=== PATIENT | male | born 1945 | race Hispanic/Latino ===

== ENCOUNTER 2017-12-23 21:28 | Inpatient (IN) | payer MEDICARE ==
--- NOTE | 2017-12-23 22:16 | RAD ---
SINGLE VIEW OF THE CHEST: 12/23/17 COMPARISON: None. HISTORY: Fever. FINDINGS: Single view of the chest shows a normal sized cardiomediastinal silhouette. There is no evidence of c onsolidation, mass, or pleural effusion. The bones are unremarkable. IMPRESSION: No evidence of acute cardiopulmonary disease. POS: C
[2017-12-23 22:17] LABS: Band 28 % (5-11); Dohle Bodies SLIGHT; Hemoglobin 14.3 g/dL (14.0-18.0); Lymphocytes 17 % (21-51); MDiff Complete? YES; Mean Corpuscular HGB CONC 35.9 g/dL (32.0-36.0); Mean Corpuscular Volume 83.5 fL (78.0-98.0); Mean Platelet Volume 8.8 fL (7.4-10.4); Monocytes 2 % (0-10); Neutrophil 53 % (42-75); PLT Morphology Comment Appears Adequate; Platelet Count 192 thou/uL (130-400); RBC Distribution Width 11.5 % (11.5-14.5); Red Blood Cell (RBC) Count 4.78 mill/uL (4.70-6.10); Vacuoles SLIGHT; White Blood Cell (WBC) Count 9.2 thou/uL (4.8-10.8)
[2017-12-23] MEDS ORDERED: Piperacillin/Tazobactam 4.5 GM VIAL ONE (22:18)
[2017-12-23] MEDS ORDERED: Sodium Chloride 0.9% 100 ML ONE (22:18)
[2017-12-23 22:20] LABS: ALT (SGPT) 30 U/L (8-55); AST (SGOT) 20 U/L (5-34); Albumin 4.4 g/dL (3.4-4.8); Alkaline Phosphatase 62 U/L (40-150); Anion Gap 19 mmol/L (10-20); BUN (Urea Nitrogen) 26 mg/dL (8.4-25.7); Bilirubin, Total 1.5 mg/dL (0.2-1.2); Calc. Creatinine Clearance 0 mL/min (70-130); Calcium 9.4 mg/dL (7.8-10.44); Carbon Dioxide 18 mmol/L (23-31); Chloride 98 mmol/L (98-107); Estimated GFR-MDRD 47; Globulin 3.7 g/dL (2.4-3.5); Glucose 301 mg/dL (83-110); Lipase 17 U/L (8-78); Potassium 3.7 mmol/L (3.5-5.1); Protein, Total 8.1 g/dL (5.8-8.1); Sodium 131 mmol/L (136-145)
[2017-12-23 22:22] LABS: CKMB 0.6 ng/mL (0-6.6); Troponin I Less than 0.010 ng/mL (< 0.028)
[2017-12-23 22:27] LABS: Bilirubin Negative (Negative); Blood, Urine Trace (Negative); Clarity Slightly Cloudy (Clear); Glucose, Urine (Dipstick) 250 mg/dL (Negative); Leukocyte Negative (Negative); Nitrite Negative (Negative); Protein, Urine (Dipstick) > or equal to 300 mg/dL (Neg-Trace); Urobilinogen 0.2 mg/dL (0.2-1.0); pH, Urine 5.5 (5.0-9.0)
[2017-12-23 22:35] LABS: Bacteria/HPF 1+ HPF (None Seen); Hyaline Casts/LPF NONE SEEN LPF (0-3 Hyaline); RBC/HPF 0-3 HPF (0-3); Squamous Epithelial 0-3 HPF (0-3); WBC/HPF 0-3 HPF (0-3)
--- NOTE | 2017-12-23 22:45 | CT ---
CT HEAD WITHOUT IV CONTRAST; 12/23/17 HISTORY: Altered mental status. COMPARISON: 10/11/10. FINDINGS: There is no evidence of a hemorrhage, acute infarction, mass effect, or midline shift. There is mild cerebral volume loss similar to prior exam. Ventricular system is normal in size, shape and position. There has been no interval change from the prior exam. IMPRESSION: No acute intracranial abnormalities demonstrated. POS: [facility]
[2017-12-23] MEDS ORDERED: Ibuprofen 800 MG TAB ONE (22:57)
[2017-12-24] MEDS ORDERED: Sodium Chloride 0.9% 1,000 ML IV SCH (00:15)
[2017-12-24 00:33] VITALS: BMI 33.9
[2017-12-24 02:13] LABS: Lactic Acid 2.6 mmol/L (0.5-2.2)
[2017-12-24] MEDS: Acetaminophen 325 MG TAB PO PRN ×2 (05:20→21:19)
[2017-12-24] MEDS: Piperacillin/Tazobactam 3.375 GM in Sodium Chloride 0.9% 100 ML IVPB SCH ×4 (05:21→22:56)
[2017-12-24] MEDS ORDERED: HumaLOG 300 UNITS/3 ML VIAL SC PRN (07:12)
[2017-12-24] MEDS ORDERED: Zolpidem Tartrate 5 MG TAB PO PRN (07:12)
[2017-12-24] MEDS ORDERED: HYDROcodone/Acetaminophen 5/325 mg Tablet PO PRN (07:12)
[2017-12-24] MEDS ORDERED: Chloraseptic Spray 180 ml Bottle PO PRN (07:12)
[2017-12-24] MEDS ORDERED: Ondansetron ODT 4 MG TAB PO PRN (07:12)
[2017-12-24] MEDS ORDERED: Milk Of Magnesia 30 ML UDCUP PO PRN (07:12)
[2017-12-24] MEDS ORDERED: Loratadine 10 MG TAB PO PRN (07:12)
[2017-12-24] MEDS ORDERED: Senokot 8.6 MG TAB PO PRN (07:12)
[2017-12-24] MEDS ORDERED: Artificial Tears 18 DROP/0.9 ML EA EYE PRN (07:12)
[2017-12-24] MEDS ORDERED: Sodium Chloride 0.65% Nasal 44 ML BOT EA NARE PRN (07:12)
[2017-12-24] MEDS ORDERED: Dextrose 5% in Water 1,000 ML IV PRN (07:12)
[2017-12-24] MEDS ORDERED: Diabetic Tussin 200 MG/10 ML UDCUP PO PRN (07:12)
[2017-12-24] MEDS ORDERED: Dextrose 50% Abboject 50 ML SYRINGE SLOW IVP PRN (07:12)
[2017-12-24] MEDS ORDERED: Labetalol HCl 100 MG/20 ML VIAL SLOW IVP PRN (07:12)
[2017-12-24] MEDS ORDERED: Mag-Al 1200 mg/1200 mg/30 ML UDCUP PO PRN (07:12)
[2017-12-24] MEDS ORDERED: Ondansetron HCl/PF 4 MG/2 ML Vial IVP PRN (07:12)
[2017-12-24] MEDS ORDERED: Eucerin (Mineral Oil/Petrolatum,White) 30 gm Jar TOP PRN (07:12)
[2017-12-24] MEDS ORDERED: Prevnar 13-Val Conj/PF 0.5 ML SYRINGE IM ONE (09:00)
[2017-12-24] MEDS ORDERED: Famotidine 20 MG TAB PO SCH (09:00)
[2017-12-24] MEDS: Amlodipine 10 MG TAB PO SCH (09:09)
[2017-12-24] MEDS: glipiZIDE 10 MG TAB PO SCH ×2 (09:09→21:20)
[2017-12-24] MEDS: Enoxaparin Sodium 40 MG/0.4 ML SYRINGE SC SCH (09:10)
[2017-12-24] MEDS: Saccharomyces boulardii 250 MG CAP PO SCH (09:14)
[2017-12-24] MEDS: Sodium Chloride 0.9% 1,000 ML IV SCH ×2 (10:55→21:20)
--- NOTE | 2017-12-24 11:25 | HP ---
DATE OF ADMISSION 12/23/2017 REASON FOR ADMISSION: Sepsis. HISTORY OF PRESENT ILLNESS: A 72-year-old male who is [place]arag[place] speaking only, but family mem roman present who provided most of the history and help to interpret to get history from him. The shine ent has nausea, vomiting, diarrhea for the last 3 days. His diarrhea is liquidy in nature. He denie s any pus or blood. He denies any unusual food ingestion. He denies any sick exposure. He denies a [place] recent travel. There is no other family member sick besides him. He started having fever up to t emperature maximum 103 at home with chills. He was having increasing hesitancy for urination as well as incontinence of urination. Similarly whenever he was going for defecation and he was not able to control and he was having little amount of crampy lower abdominal discomfort. He denies any associa kyree cough, pleuritic chest pain. He denies any hematemesis, melena. He denies any sore throat or fl u-like illness. The patient's appetite was also reduced and per family member, the patient was confused when he had f ever at home, but subsequently he was acting normal. He did not have any focal neurological deficit. In the emergency room, the patient was tachycardic, febrile, tachypneic. His routine blood tests milagro wed bandemia. He was treated with vancomycin and Zosyn, ibuprofen and IV fluid at [facility] and subsequently he was transferred to our hospital for further evaluation and priscilla atment. The patient also reports that his abdomen is bloated and he feels epigastric and right upper quadrant pain. He denies any yellow discoloration of the sclerae or urine. He denies any similar problem in the past. REVIEW OF SYSTEMS: The following complete review of systems was negative, unless otherwise mentioned in the HPI or below: Constitutional: Weight loss or gain, ability to conduct usual activities. Skin: Rash, itching. Eyes: Double vision, pain. ENT/Mouth: Nose bleeding, neck stiffness, pain, tenderness. Cardiovascular: Palpitations, dyspnea on exertion, orthopnea. Respiratory: Shortness of breath, wheezing, cough, hemoptysis, fever or night sweats. Gastrointestinal: Poor appetite, abdominal pain, heartburn, nausea, vomiting, constipation, or diarrhea. Genitourinary: Urgency, frequency, dysuria, nocturia. Musculoskeletal: Pain, swelling. Neurologic/Psychiatric: Anxiety, depression. Allergy/Immunologic: Skin rash, bleeding tendency. Please see my HPI for pertinent positive and negative. All other review of systems reviewed and nega tive except as mentioned in the HPI. PAST MEDICAL HISTORY: Diabetes type 2, hypertension. PAST SURGICAL HISTORY: Reviewed and negative. PAST PSYCHIATRIC HISTORY: Reviewed and negative. SOCIAL HISTORY: The patient is living at home with family. No history of tobacco, alcohol or illici t drug abuse. FAMILY HISTORY: Diabetes runs among several family members, but no strong family history of coronary artery disease, stroke or cancer. ALLERGIES: No known drug allergy. CURRENT HOME MEDICATIONS: Janumet one tablet twice daily, glipizide 10 mg twice daily, cloni dine 0.1 mg 3 times daily, Actos 30 mg p.o. daily, amlodipine 10 mg daily, metoprolol tartrate 100 mg twice daily, Prinzide 20/25 one tablet p.o. daily, hydralazine 50 mg twice daily. EMERGENCY ROOM COURSE: The patient is given ibuprofen, vancomycin, Zosyn, and IV fluid. PHYSICAL EXAMINATION: VITAL SIGNS: On arrival, blood pressure 173/47, pulse 107, respiratory rate 22, temperature 103.1, s aturation 94% on room air, weight 83.9 kilograms. GENERAL: The patient is currently alert, awake, no obvious acute distress. HEENT: Head; normocephalic, atraumatic. Eyes: Pupils round, reactive to light. Extraocular muscle intact. ENT: Oropharynx within normal limits. Moist mucous membrane, no oral lesion, no pharyngea l erythema, no exudate. NECK: Supple, no JVD, no thyromegaly, no carotid bruit, no jugular venous distention. LUNGS: Clear to auscultation, no rhonchi, no wheeze, no accessory muscles of respiration in use. CARDIAC: S1, S2 regular, tachycardia, no murmur elicited, no gallop, no rub. ABDOMEN: The patient does have some vague right upper quadrant discomfort, but no obvious Yates's s ign, no epigastric discomfort noted. The abdomen appears bloated. No peritoneal sign, no guarding, no rigidity, no rebound. Even though suprapubic tenderness. BACK: Unremarkable, no CVA tenderness. EXTREMITIES: Upper extremity passive movement of all joints are normal. Lower extremities: No jacki a. Good peripheral pulsation, no calf tenderness. SKIN: No skin rash. HEMATOLOGICAL: No lymphadenopathy. PSYCHIATRIC: Normal affect. NEUROLOGIC: The patient is alert, oriented x3. Cranial nerves II-XII intact. Motor and sensation w ithin normal limits. No focal neurological deficit noted. SKIN: No skin rashes. PSYCHIATRIC: Normal affect. SIGNIFICANT LABORATORY AND X-RAY DATA: EKG showing sinus tachycardia without any acute ischemic dalton ges. Chest x-ray based on my review, no acute cardiopulmonary process. CT brain based on my review, no acute intracranial process. CBC: WBC is 9.2, hemoglobin 14.3, platelet 192 with bandemia 1828. BMP: Sodium 131, potassium 3.7, chloride 98, carbon dioxide 18, BUN 26, creatinine 1.47, glucose 301, calcium 9.5. Bilirubin 1.5, A ST 20, ALT 30, alkaline phosphatase 62, albumin 4.4. TSH 1.44. Cardiac enzymes negative. Lactic ac id 2.3. Urinalysis: Glucosuria, proteinuria, ketonuria, 1+ bacteria. ASSESSMENT AND PLAN: 1. Acute encephalopathy, resolved, likely due to acute febrile illness and associated sepsis. 2. Acute kidney failure, likely due to prerenal etiology baseline renal function not known. Another differential is chronic kidney disease from diabetic nephropathy. 3. Lactic acidosis likely due to sepsis. 4. Sepsis with acute organ dysfunction. Patient has a sepsis criteria. He has acute kidney failure and encephalopathy at home without any focal neurological deficit with lactic acidosis. Source of i nfection is unclear, but I am suspecting gastroenteritis versus colitis versus cholecystitis and that needs to be excluded. The patient is already on broad spectrum antibiotic therapy with vancomycin a nd Zosyn. We need to follow up on culture result. 5. Uncontrolled diabetes type 2. 6. Hyponatremia likely due to dehydration as well as uncontrolled blood sugar. 7. Hypertension. 8. Obesity with BMI 33. PLAN: 1. Full admission to telemetry floor for close monitoring on telemetry floor, given sepsis criteria. Patient will be given IV fluid with NS at 125 mL per hour. We will continue broad spectrum antibio tic therapy with vancomycin and Zosyn and will follow up on culture result. Probiotics, Florastor 25 0 mg p.o. daily. We will send stool for infection workup including ova and parasite, Campylobacter a ntigen, and Clostridium difficile. We will obtain CT of the abdomen and pelvis with contrast for fur ther evaluation. We will also resume patient's home medication including amlodipine, glipizide 10 mg twice daily. We will repeat lactic acid level tomorrow. We will hold on metformin and Januvia ther apy today. We will continue with insulin as per aggressive sliding scale. 2. Deep venous thrombosis prophylaxis, Lovenox 40 mg subcu daily. 3. Gastrointestinal prophylaxis, Pepcid 20 mg p.o. b.i.d. 4. CODE STATUS: The patient is FULL CODE. The patient's is surrogate decision maker. Disposition plan based on clinical course. We are expecting patient's stay in hospital more than 2 m idnights. Plan of care discussed with the family member at bedside.
[2017-12-24] MEDS ORDERED: Iopamidol 370 76% 100 ML VIAL ONE (13:09)
--- NOTE | 2017-12-24 14:21 | CT ---
CT OF THE ABDOMEN AND PELVIS WITH IV AND ENTERIC CONTRAST. INDICATION: Abdominal distention with gastritis and diarrhea. FINDINGS: There are bilateral renal cysts. The largest is seen within the inferior pole of the left kidney alyce suring 4.1 cm. There is an indeterminate 1.2 cm nodule involving the left adrenal body. Spleen and pancreas appear within normal limits. There are moderate calcifications involving the abdominopelvic vasculature. No drainable fluid collection is evident. The bladder, rectum, and perirectal soft tissues are unrem arkable. There is scattered diverticula involving the colon. There is wall thickening involving the cecum, ascending colon, and hepatic flexure. There is fluid present within the colon. The appendix is upper limits of normal in size measuring up to 8 mm; however, no definite periappendi ceal fat stranding is evident. No acute osseous abnormality is evident. IMPRESSION: 1. Findings of colitis involving the right hemicolon and right hepatic flexure with some fluid seen within the colon. Findings may be related to a colitis of infectious, inflammatory, or ischemic etio logy. 2. Appendix is upper limits of normal in size; however, there is intraluminal gas present. Some of the mild distention of the appendix may be related to the inflammation seen at the level of the cecum . 3. Fatty liver. 4. Bilateral renal cysts. 5. Left adrenal nodule measuring up to 1.2 cm, incompletely characterized on the current examination . The nodule on restropective review of the examination of the CT chest, abdomen, and pelvis on 2010 is likely stable. POS: [facility]
[2017-12-24] MEDS ORDERED: Vancomycin HCl 1.25 GM in Sodium Chloride 0.9% 250 ML 250 ML IVPB SCH (18:00)
[2017-12-24] MEDS: Simvastatin 5 MG TAB PO SCH (21:20)
[2017-12-24] MEDS: Loperamide HCl 2 MG CAP PO PRN (21:25)
--- NOTE | 2017-12-25 00:18 | CON ---
DATE OF CONSULTATION: 12/24/2017 REQUESTING PHYSICIAN: Dr. Najera. ATTENDING PHYSICIAN: Dr. Dale. HISTORY OF PRESENT ILLNESS: Mr. Chou is a 72-year-old male, who began experiencing diarrhea and abdominal pain, approximately 5 days ago. He reports that the pain intensified over the past 3 days. He also had crampy generalized abdominal pain. He also reports experiencing dizziness as well as fever and chills. He remained at home over the past 5 days. He had decrease in appetite and began having confusion with his fever. His daughter reports that she brought him to the emergency department for evaluation as his symptoms were not improving. CT scan of abdomen and pelvis obtained in the emergency department demonstrated colitis involving the right hemicolon and right hepatic flexure and dilated appendix. He was admitted to the hospital by [facility] and started on IV antibiotics. Trauma services has been consulted for evaluation for the need for urgent surgical intervention. PAST MEDICAL HISTORY: 1. Diabetes. 2. Hypertension. PAST SURGICAL HISTORY: None. SOCIAL HISTORY: Tobacco none. Alcohol none. Drugs none. ALLERGIES: None. CURRENT HOME MEDICATIONS: 1. Janumet twice daily. 2. Glipizide 10 mg twice daily. 3. Clonidine 0.1 mg 3 times daily. 4. Actos 30 mg p.o. daily. 5. Amlodipine 10 mg daily. 6. Metoprolol 100 mg twice daily. 7. Prinzide 20/25 once daily. 8. Hydralazine 50 mg daily. LABORATORY STUDIES: WBC 9.2, RBC 4.78, hemoglobin 14.3, hematocrit 39.9, platelets 192. Chemistry: Sodium 131, potassium 3.7, chloride 98, carbon dioxide 18, BUN 26, creatinine 1.47, glucose 301. Lactic acid 2.3, calcium 9.4 , total bilirubin 1.5, AST 20, ALT 30, alkaline phosphatase 62, lipase 17. REVIEW OF SYSTEMS: Constitutional: The patient reports generalized malaise, fever, and chills. HEENT: Denies otorrhea, rhinorrhea, sore throat. Cardiovascular: Denies chest pain, palpitations. Respiratory: Denies wheezing , cough. Abdomen: Reports generalized abdominal pain, nausea, diarrhea. Reports poor appetite. Genitourinary: Reports frequency, urgency. Musculoskeletal: Denies injury or pain. Neurologic: Denies headache or focal weakness. PHYSICAL EXAMINATION: VITAL SIGNS: Temperature 99.3, pulse 96, blood pressure 148/67, respirations 20 , O2 saturation 94% on room air. GENERAL: Well-nourished, well-developed male, lying in bed, in no acute distress. HEENT: Atraumatic, normocephalic. LUNGS: Clear bilateral breath sounds, equal. Respirations unlabored. CARDIAC: Regular rate and rhythm. ABDOMEN: Soft, moderately distended. No guarding, no rigidity, no masses. No tenderness to palpation. EXTREMITIES: Moves all extremities. 2+ pulses. SKIN: Warm, dry, normal in color. NEUROLOGIC: GCS 15. PSYCHIATRIC: Alert and oriented x3. ASSESSMENT AND PLAN: A 72-year-old male admitted with sepsis and gastrointestinal illness. Abdominal CT scan demonstrates colitis and distended appendix. The patient was placed on IV antibiotic therapy. Abdominal pain has improved. There is no indication for urgent appendectomy at this time. Recommend continuing IV antibiotics for treatment of colitis. Monitor for stool culture. We will continue to follow with you and consider surgical intervention should the patient's clinical condition warrants. The patient was reviewed with Dr. Dale at the time of this consultation. LISA
[2017-12-25 05:41] LABS: #Eosinphils 0.1 thou/uL (0.0-0.7); #Lymphocytes 0.7 thou/uL (1.20-3.40); #Monocytes 0.4 thou/uL (0.11-0.59); #Neutrophils 2.7 thou/uL (1.40-6.50); %Basophils 0.5 % (0.0-1.0); %Eosinophils 2.3 % (0.0-10.0); %Lymphocytes 18.1 % (21.0-51.0); %Neutrophils 70.1 % (42.0-75.0); Hemoglobin 13.8 g/dL (14.0-18.0); Mean Corpuscular HGB CONC 34.2 g/dL (32.0-36.0); Mean Corpuscular Hemoglobin 30.6 pg (27.0-31.0); Mean Corpuscular Volume 89.4 fL (78.0-98.0); Mean Platelet Volume 7.9 fL (7.4-10.4); Platelet Count 150 thou/uL (130-400); RBC Distribution Width 12.6 % (11.5-14.5); Red Blood Cell (RBC) Count 4.51 mill/uL (4.70-6.10); White Blood Cell (WBC) Count 3.9 thou/uL (4.8-10.8)
[2017-12-25] MEDS: Sodium Chloride 0.9% 1,000 ML IV SCH (05:56)
[2017-12-25] MEDS: Piperacillin/Tazobactam 3.375 GM in Sodium Chloride 0.9% 100 ML IVPB SCH ×4 (05:56→23:02)
[2017-12-25 05:57] LABS: Lactic Acid 0.9 mmol/L (0.5-2.2)
[2017-12-25] MEDS: Levothyroxine Sodium 75 MCG TAB PO SCH (05:57)
[2017-12-25 05:59] LABS: ALT (SGPT) 27 U/L (8-55); AST (SGOT) 36 U/L (5-34); Albumin 3.7 g/dL (3.4-4.8); Alkaline Phosphatase 56 U/L (40-150); Anion Gap 14 mmol/L (10-20); BUN (Urea Nitrogen) 11 mg/dL (8.4-25.7); Bilirubin, Total 1.3 mg/dL (0.2-1.2); Calc. Creatinine Clearance 98 mL/min (70-130); Calcium 8.3 mg/dL (7.8-10.44); Carbon Dioxide 20 mmol/L (23-31); Chloride 107 mmol/L (98-107); Estimated GFR-MDRD 88; Globulin 3.7 g/dL (2.4-3.5); Glucose 145 mg/dL (83-110); Potassium 3.3 mmol/L (3.5-5.1); Protein, Total 7.4 g/dL (5.8-8.1); Sodium 138 mmol/L (136-145)
[2017-12-25] MEDS: Acetaminophen 325 MG TAB PO PRN ×2 (06:02→23:02)
[2017-12-25] MEDS: Loperamide HCl 2 MG CAP PO PRN (06:02)
[2017-12-25] MEDS: Pioglitazone HCl 15 MG TAB PO SCH (08:35)
[2017-12-25] MEDS: Amlodipine 10 MG TAB PO SCH (08:37)
[2017-12-25] MEDS: Metoprolol Tartrate 100 MG TAB PO SCH ×2 (08:37→21:22)
[2017-12-25] MEDS: Saccharomyces boulardii 250 MG CAP PO SCH (08:37)
[2017-12-25] MEDS: glipiZIDE 10 MG TAB PO SCH ×2 (08:37→21:04)
[2017-12-25] MEDS: Enoxaparin Sodium 40 MG/0.4 ML SYRINGE SC SCH (08:38)
[2017-12-25] MEDS ORDERED: Famotidine 20 MG TAB PO SCH (09:00)
[2017-12-25] MEDS: NS 0.9% w/ 20 MEQ KCL 1,000 ML/1,000 ML BAG IV SCH ×2 (10:49→21:13)
--- NOTE | 2017-12-25 12:07 | PDOC.PN ---
- Subjective Encounter Start Date: 12/25/17 Encounter Start Time: 08:40 pt had last night fever, he has less diarrhoea, he feels improving, family bedside - Objective Resuscitation Status: Resuscitation Status FULL:Full Resuscitation MAR Reviewed: Yes Vital Signs & Weight: Vital Signs (12 hours) Temp Pulse Resp BP Pulse Ox 12/25/17 12:00 98.2 F 81 17 154/74 H 94 L 12/25/17 08:33 99.7 F H 95 18 152/78 H 95 12/25/17 08:20 99.7 F H 95 18 95 12/25/17 04:00 99.4 F 100 20 142/68 H 95 Weight Weight 197 lb 9.6 oz I&O: 12/24/17 12/25/17 12/26/17 06:59 06:59 06:59 Intake Total 3350 Output Total 220 Balance 3130 Result Diagrams: 12/25/17 04:59 12/25/17 04:59 Additional Labs: Accuchecks 12/25/17 12/25/17 12/24/17 11:08 06:06 20:27 POC Glucose 193 H 160 H 207 H 12/24/17 16:50 POC Glucose 198 H Radiology Reviewed by me: Yes (CT abdomen reviewed) EKG Reviewed by me: Yes (nsr) Phys Exam - Physical Examination Constitutional: NAD HEENT: PERRLA, moist MMs, sclera anicteric Neck: no nodes, no JVD, supple Respiratory: no wheezing, no rales, no rhonchi Cardiovascular: RRR, no significant murmur, no rub Gastrointestinal: soft, no distention, positive bowel sounds lower abdominal discomfort Musculoskeletal: no edema, pulses present Neurological: non-focal, normal sensation, moves all 4 limbs Psychiatric: normal affect, A&O x 3 Skin: no rash, normal turgor Dx/Plan (1) Acute colitis Code(s): K52.9 - NONINFECTIVE GASTROENTERITIS AND COLITIS, UNSPECIFIED Status : Acute Comment: likely due to infection, positive for campylobactor (2) Acute kidney failure Status: Resolved (3) Encephalopathy acute Code(s): G93.40 - ENCEPHALOPATHY, UNSPECIFIED Status: Resolved (4) Hyponatremia Code(s): E87.1 - HYPO-OSMOLALITY AND HYPONATREMIA Status: Resolved (5) Lactic acidosis Code(s): E87.2 - ACIDOSIS Status: Resolved (6) Obesity (BMI 30.0-34.9) Code(s): E66.9 - OBESITY, UNSPECIFIED Status: Acute (7) Sepsis with acute organ dysfunction Code(s): A41.9 - SEPSIS, UNSPECIFIED ORGANISM; R65.20 - SEVERE SEPSIS WITHOUT SEPTIC SHOCK Status: Acute (8) Diabetes type 2, controlled Code(s): E11.9 - TYPE 2 DIABETES MELLITUS WITHOUT COMPLICATIONS Status: Chronic (9) Hypertension Code(s): I10 - ESSENTIAL (PRIMARY) HYPERTENSION Status: Chronic (10) Hypokalemia Code(s): E87.6 - HYPOKALEMIA Status: Acute - Plan cont current plan of care, plan discussed w/ family, continue antibiotics * replace potassium with IVF * reduce IVF rate * transfer to medical * DC Tele * continue zosyn and levaquin and vancomycin * tomorrow will narrow down antibiotics spectrum * if afebrile for 24 hours, then will consider discharge * discussed with family bedside * ambulate as tolerated * as there was concern for appendicitis, surgery consulted. Review of Systems - Review of Systems Constitutional: fever. negative: chills, sweats, weakness, malaise, other Respiratory: negative: Cough, Dry, Shortness of Breath, Hemoptysis, SOB with Excertion, Pleuritic Pain, Sputum, Wheezing Cardiovascular: negative: chest pain, palpitations, orthopnea, paroxysmal nocturnal dyspnea, edema, light headedness, other Gastrointestinal: Abdominal Pain. negative: Nausea, Vomiting, Diarrhea, Constipation, Melena, Hematochezia, Other Genitourinary: negative: Dysuria, Frequency, Incontinence, Hematuria, Retention , Other Musculoskeletal: negative: Neck Pain, Shoulder Pain, Arm Pain, Back Pain, Hand Pain, Leg Pain, Foot Pain, Other Skin: negative: Rash, Lesions, Ayush, Bruising, Other Neurological: negative: Weakness, Numbness, Incoordination, Change in Speech, Confusion, Seizures, Other - Medications/Allergies Allergies/Adverse Reactions: Allergies Allergy/AdvReac Type Severity Reaction Status Date / Time No Known Drug Allergies Allergy Verified 12/24/17 00:07 Medications: Current Medications Acetaminophen (Tylenol) 650 mg PO Q6H PRN PRN Reason: Fever or Pain 1-3 Last Admin: 12/25/17 06:02 Dose: 650 mg Hydrocodone Bitart/Acetaminophen ([place] 5/325) 1 tab PO Q4H PRN PRN Reason: Moderate Pain (4-6) Al Hydroxide/Mg Hydroxide (Maalox) 30 ml PO Q6H PRN PRN Reason: Heartburn or Indigestion Amlodipine Besylate (Norvasc) 10 mg PO DAILY [facility] Last Admin: 12/25/17 08:37 Dose: 10 mg Artificial Tears (Tears Naturale) 0 drop EA EYE PRN PRN PRN Reason: Dry Eyes Dextrose/Water (Dextrose 50%) 25 gm SLOW IVP PRN PRN PRN Reason: Hypoglycemia Enoxaparin Sodium (Lovenox) 40 mg SC 0900 [facility] Last Admin: 12/25/17 08:38 Dose: 40 mg Famotidine (Pepcid) 20 mg PO DAILY [facility] Last Admin: 12/25/17 08:37 Dose: 20 mg Glipizide (Glucotrol) 10 mg PO BID [facility] Last Admin: 12/25/17 08:37 Dose: 10 mg Glucagon (Glucagon) 1 mg IM PRN PRN PRN Reason: Hypoglycemia Guaifenesin (Robitussin Sf) 200 mg PO Q4H PRN PRN Reason: Cough Piperacillin Sod/Tazobactam (Sod 3.375 gm/ Sodium Chloride) 100 mls @ 200 mls/ hr IVPB 0500,1100,1700,2300 [facility] Last Admin: 12/25/17 11:58 Dose: 100 mls Vancomycin HCl 1.25 gm/ Sodium (Chloride) 250 mls @ 166.667 mls/hr IVPB 1800 [facility] Last Admin: 12/24/17 18:41 Dose: 250 mls Dextrose/Water (D5w) 1,000 mls @ 0 mls/hr IV .Q0M PRN; As Directed PRN Reason: Hypoglycemia Levofloxacin 750 mg/ Device 150 mls @ 100 mls/hr IVPB Q24HR [facility] Last Admin: 12/25/17 08:36 Dose: 150 mls Potassium Chloride/Sodium Chloride (Ns 0.9% W/ 20 Meq Kcl) 1,000 ml in 1,000 mls @ 75 mls/hr IV .[id number] [facility] Last Admin: 12/25/17 10:49 Dose: 1,000 mls Insulin Human Lispro (Humalog) 0 units SC .AGGRESSIVE SLIDING PRN PRN Reason: Aggressive Correctional Scale Insulin Human Lispro (Humalog) 0 units SC .BEDTIME SLIDING SC PRN PRN Reason: Bedtime Correctional Scale Labetalol HCl (Normodyne) 20 mg SLOW IVP Q4H PRN PRN Reason: Systolic BP > 180 Levothyroxine Sodium (Synthroid) 75 mcg PO 0600 [facility] Last Admin: 12/25/17 05:57 Dose: 75 mcg Loperamide HCl (Imodium) 2 mg PO PRN PRN PRN Reason: Diarrhea/Loose Stools Last Admin: 12/25/17 06:02 Dose: 2 mg Loratadine (Claritin) 10 mg PO DAILYPRN PRN PRN Reason: Sinus Symptoms Magnesium Hydroxide (Milk Of Magnesium) 30 ml PO DAILYPRN PRN PRN Reason: Constipation Metoprolol Tartrate (Lopressor) 100 mg PO BID [facility] Last Admin: 12/25/17 08:37 Dose: 100 mg Mineral Oil/White Petrolatum (Eucerin Cream) 0 gm TOP BIDPRN PRN PRN Reason: Dry Skin Ondansetron HCl (Zofran Odt) 4 mg PO Q6H PRN PRN Reason: Nausea/Vomiting Ondansetron HCl (Zofran) 4 mg IVP Q6H PRN PRN Reason: Nausea/Vomiting Phenol (Chloraseptic [place] 180 Ml Bot) 0 ml PO PRN PRN PRN Reason: Sore Throat Last Admin: 12/24/17 14:37 Dose: 1 spray Pioglitazone HCl (Actos) 30 mg PO DAILY [facility] Last Admin: 12/25/17 08:35 Dose: 30 mg Saccharomyces Boulardii (Florastor) 250 mg PO DAILY [facility] Last Admin: 12/25/17 08:37 Dose: 250 mg Senna (Senokot) 2 tab PO HSPRN PRN PRN Reason: Constipation Simvastatin (Zocor) 5 mg PO HS [facility] Last Admin: 12/24/17 21:20 Dose: 5 mg Sodium Chloride (Flush - Normal Saline) 10 ml IVF PRN PRN PRN Reason: Saline Flush Sodium Chloride ([place] Nasal [place] 0.65%) 0 ml EA NARE QIDPRN PRN PRN Reason: Nasal Congestion Zolpidem Tartrate (Ambien) 5 mg PO HSPRN PRN PRN Reason: Insomnia
[2017-12-25 12:42] LABS: Vancomycin, Random 4.5 ug/mL (See Comment)
[2017-12-25] MEDS: HumaLOG 300 UNITS/3 ML VIAL SC PRN (16:38)
[2017-12-25] MEDS: Famotidine 20 MG TAB PO SCH (21:03)
[2017-12-25] MEDS: Alogliptin 6.25 MG TAB PO SCH (21:03)
[2017-12-25] MEDS: metFORMIN 500 MG TAB PO SCH (21:04)
--- NOTE | 2017-12-25 21:05 | PRG ---
DATE OF SERVICE: 12/25/2017 SUBJECTIVE: Mr. Chou is a 72-year-old man who was admitted 2 days ago with abdominal p ain. Clinical radiographic examination was consistent with acute colitis involving the right colon. There was a suspicion of dilated appendix with no periappendiceal fat stranding to suggest appendici tis; however, I was asked to evaluate the patient to exclude appendicitis. This morning, patient den ies any abdominal pain. He is tolerating a diet and having normal bowel and urinary function. OBJECTIVE: VITAL SIGNS: Today includes blood pressure 152/78, pulse 95, respiratory rate 18, temperature 99.7 d egrees Fahrenheit, oxygen saturation is 95% on room air. HEART: Reveals regular rate and rhythm. CHEST: Lungs clear to auscultation bilaterally. ABDOMEN: Soft, nontender and nondistended. Bowel sounds in all four quadrants appear normoactive. LABORATORY DATA: Today includes a CBC with 3900 white blood cells, hemoglobin and hematocrit are 13. 8 and 40.3 respectively. Platelet count is 150,000. Metabolic profile today; sodium 138, potassium is 3.3, chloride is 107, bicarbonate 20, BUN 11, creatinine 0.85, glucose is 145. AST and ALT noted at 36 and 27 respectively. IMPRESSION: Resolving acute colitis. There clearly is no clinical evidence of acute appendicitis at this time. PLAN: There is no acute surgical indication for this plan; therefore, we will recommend continuing c urrent antibiotic therapy. General Surgery will sign off and be available to reevaluate this patient on demand.
[2017-12-25] MEDS: Simvastatin 5 MG TAB PO SCH (21:06)
[2017-12-26] MEDS: Vancomycin HCl 1.25 GM in Sodium Chloride 0.9% 250 ML 250 ML IVPB SCH ×2 (01:31→13:12)
[2017-12-26] MEDS: Piperacillin/Tazobactam 3.375 GM in Sodium Chloride 0.9% 100 ML IVPB SCH ×4 (05:18→23:00)
[2017-12-26] MEDS: Levothyroxine Sodium 75 MCG TAB PO SCH (05:19)
[2017-12-26 08:02] LABS: #Basophils 0.1 thou/uL (0.0-0.2); #Eosinphils 0.3 thou/uL (0.0-0.7); #Lymphocytes 1.1 thou/uL (1.20-3.40); #Monocytes 0.4 thou/uL (0.11-0.59); %Basophils 1.3 % (0.0-1.0); %Lymphocytes 28.5 % (21.0-51.0); %Monocytes 10.9 % (0.0-10.0); %Neutrophils 52.3 % (42.0-75.0); Hemoglobin 14.1 g/dL (14.0-18.0); Mean Corpuscular HGB CONC 35.3 g/dL (32.0-36.0); Mean Corpuscular Volume 87.7 fL (78.0-98.0); Mean Platelet Volume 7.3 fL (7.4-10.4); Platelet Count 189 thou/uL (130-400); RBC Distribution Width 12.6 % (11.5-14.5); Red Blood Cell (RBC) Count 4.54 mill/uL (4.70-6.10); White Blood Cell (WBC) Count 3.8 thou/uL (4.8-10.8)
[2017-12-26 08:23] LABS: Anion Gap 12 mmol/L (10-20); BUN (Urea Nitrogen) 7 mg/dL (8.4-25.7); Calc. Creatinine Clearance 103 mL/min (70-130); Calcium 7.9 mg/dL (7.8-10.44); Carbon Dioxide 22 mmol/L (23-31); Chloride 107 mmol/L (98-107); Estimated GFR-MDRD Greater than 90; Glucose 184 mg/dL (83-110); Potassium 3.2 mmol/L (3.5-5.1); Sodium 138 mmol/L (136-145)
[2017-12-26] MEDS: hydrALAZINE 25 MG TAB PO SCH ×2 (09:13→21:03)
[2017-12-26] MEDS: metFORMIN 500 MG TAB PO SCH ×2 (09:13→21:03)
[2017-12-26] MEDS: Famotidine 20 MG TAB PO SCH ×2 (09:13→21:02)
[2017-12-26] MEDS: glipiZIDE 10 MG TAB PO SCH ×2 (09:13→21:02)
[2017-12-26] MEDS: Alogliptin 6.25 MG TAB PO SCH ×2 (09:14→21:02)
[2017-12-26] MEDS: Amlodipine 10 MG TAB PO SCH (09:14)
[2017-12-26] MEDS: cloNIDine 0.1 MG TAB PO SCH ×3 (09:14→21:02)
[2017-12-26] MEDS: Enoxaparin Sodium 40 MG/0.4 ML SYRINGE SC SCH (09:15)
[2017-12-26] MEDS: Saccharomyces boulardii 250 MG CAP PO SCH (09:16)
[2017-12-26] MEDS: NS 0.9% w/ 20 MEQ KCL 1,000 ML/1,000 ML BAG IV SCH ×2 (09:16→11:49)
[2017-12-26] MEDS: Lisinopril/Hydrochlorothiazide 20/25 mg Tablet PO SCH (10:06)
[2017-12-26] MEDS: Metoprolol Tartrate 100 MG TAB PO SCH ×2 (10:06→21:03)
[2017-12-26] MEDS: Pioglitazone HCl 15 MG TAB PO SCH (10:07)
--- NOTE | 2017-12-26 11:37 | PDOC.PN ---
- Subjective Encounter Start Date: 12/26/17 Encounter Start Time: 09:20 Patient seen and examined. No new complaints. No overnight events - Objective Resuscitation Status: Resuscitation Status FULL:Full Resuscitation MAR Reviewed: Yes Vital Signs & Weight: Vital Signs (12 hours) Temp Pulse Resp BP BP Pulse Ox 12/26/17 10:06 84 166/87 H 12/26/17 09:14 84 166/87 H 12/26/17 09:13 84 166/87 H 12/26/17 08:00 98.5 F 84 22 H 94 L 12/26/17 07:48 98.5 F 84 22 H 166/87 H 94 L 12/26/17 04:00 98.3 F 80 18 157/89 H 94 L Weight Weight 197 lb 9.6 oz I&O: 12/25/17 12/26/17 12/27/17 06:59 06:59 06:59 Intake Total 3350 1185 Output Total 220 Balance 3130 1185 Result Diagrams: 12/26/17 07:50 12/26/17 07:50 Additional Labs: Accuchecks 12/26/17 12/25/17 12/25/17 05:25 21:03 16:30 POC Glucose 160 H 209 H 236 H Phys Exam - Physical Examination Constitutional: NAD HEENT: PERRLA, moist MMs, sclera anicteric Neck: no JVD, supple Respiratory: no wheezing, no rales, no rhonchi Cardiovascular: RRR, no significant murmur, no rub Gastrointestinal: soft, non-tender, no distention, positive bowel sounds Musculoskeletal: no edema, pulses present Neurological: non-focal, normal sensation, moves all 4 limbs Lymphatic: no nodes Psychiatric: normal affect, A&O x 3 Skin: no rash, normal turgor Dx/Plan (1) Acute colitis Code(s): K52.9 - NONINFECTIVE GASTROENTERITIS AND COLITIS, UNSPECIFIED Status : Acute Comment: likely due to infection, positive for campylobactor (2) Acute kidney failure Status: Resolved (3) Encephalopathy acute Code(s): G93.40 - ENCEPHALOPATHY, UNSPECIFIED Status: Resolved (4) Hyponatremia Code(s): E87.1 - HYPO-OSMOLALITY AND HYPONATREMIA Status: Resolved (5) Lactic acidosis Code(s): E87.2 - ACIDOSIS Status: Resolved (6) Obesity (BMI 30.0-34.9) Code(s): E66.9 - OBESITY, UNSPECIFIED Status: Acute (7) Sepsis with acute organ dysfunction Code(s): A41.9 - SEPSIS, UNSPECIFIED ORGANISM; R65.20 - SEVERE SEPSIS WITHOUT SEPTIC SHOCK Status: Acute (8) Diabetes type 2, controlled Code(s): E11.9 - TYPE 2 DIABETES MELLITUS WITHOUT COMPLICATIONS Status: Chronic (9) Hypertension Code(s): I10 - ESSENTIAL (PRIMARY) HYPERTENSION Status: Chronic (10) Hypokalemia Code(s): E87.6 - HYPOKALEMIA Status: Acute (11) Bacteremia due to Gram-negative bacteria Code(s): R78.81 - BACTEREMIA Status: Acute - Plan cont current plan of care, plan discussed w/ family, continue antibiotics * continue zosyn and levaquin * follow up on blood culture result * will change to oral antibiotics based on C & S result * will repeat blood culture tomorrow * medication reviewed as below * symptomatic treatment * discussed with Review of Systems - Review of Systems Eyes: negative: Pain, Vision Change, Conjunctivae Inflammation, Eyelid Inflammation, Redness, Other ENT: negative: Ear Pain, Ear Discharge, Nose Pain, Nose Discharge, Nose Congestion, Mouth Pain, Mouth Swelling, Throat Pain, Throat Swelling, Other Respiratory: negative: Cough, Dry, Shortness of Breath, Hemoptysis, SOB with Excertion, Pleuritic Pain, Sputum, Wheezing Cardiovascular: negative: chest pain, palpitations, orthopnea, paroxysmal nocturnal dyspnea, edema, light headedness, other Gastrointestinal: negative: Nausea, Vomiting, Abdominal Pain, Diarrhea, Constipation, Melena, Hematochezia, Other Genitourinary: negative: Dysuria, Frequency, Incontinence, Hematuria, Retention , Other Musculoskeletal: negative: Neck Pain, Shoulder Pain, Arm Pain, Back Pain, Hand Pain, Leg Pain, Foot Pain, Other Skin: negative: Rash, Lesions, Ayush, Bruising, Other - Medications/Allergies Allergies/Adverse Reactions: Allergies Allergy/AdvReac Type Severity Reaction Status Date / Time No Known Drug Allergies Allergy Verified 12/24/17 00:07 Medications: Current Medications Acetaminophen (Tylenol) 650 mg PO Q6H PRN PRN Reason: Fever or Pain 1-3 Last Admin: 12/25/17 23:02 Dose: 650 mg Hydrocodone Bitart/Acetaminophen ([place] 5/325) 1 tab PO Q4H PRN PRN Reason: Moderate Pain (4-6) Al Hydroxide/Mg Hydroxide (Maalox) 30 ml PO Q6H PRN PRN Reason: Heartburn or Indigestion Alogliptin Benzoate (Alogliptin) 12.5 mg PO BID [facility] Last Admin: 12/26/17 09:14 Dose: 12.5 mg Amlodipine Besylate (Norvasc) 10 mg PO DAILY [facility] Last Admin: 12/26/17 09:14 Dose: 10 mg Artificial Tears (Tears Naturale) 0 drop EA EYE PRN PRN PRN Reason: Dry Eyes Clonidine (Catapres) 0.1 mg PO TID [facility] Last Admin: 12/26/17 09:14 Dose: 0.1 mg Dextrose/Water (Dextrose 50%) 25 gm SLOW IVP PRN PRN PRN Reason: Hypoglycemia Enoxaparin Sodium (Lovenox) 40 mg SC 0900 [facility] Last Admin: 12/26/17 09:15 Dose: 40 mg Famotidine (Pepcid) 20 mg PO BID [facility] Last Admin: 12/26/17 09:13 Dose: 20 mg Glipizide (Glucotrol) 10 mg PO BID [facility] Last Admin: 12/26/17 09:13 Dose: 10 mg Glucagon (Glucagon) 1 mg IM PRN PRN PRN Reason: Hypoglycemia Guaifenesin (Robitussin Sf) 200 mg PO Q4H PRN PRN Reason: Cough Lisinopril/HCTZ (Prinizide 20-25) 1 tab PO DAILY [facility] Last Admin: 12/26/17 10:06 Dose: 1 tab Hydralazine HCl (Apresoline) 50 mg PO BID [facility] Last Admin: 12/26/17 09:13 Dose: 50 mg Piperacillin Sod/Tazobactam (Sod 3.375 gm/ Sodium Chloride) 100 mls @ 200 mls/ hr IVPB 0500,1100,1700,2300 [facility] Last Admin: 12/26/17 05:18 Dose: 100 mls Dextrose/Water (D5w) 1,000 mls @ 0 mls/hr IV .Q0M PRN; As Directed PRN Reason: Hypoglycemia Levofloxacin 750 mg/ Device 150 mls @ 100 mls/hr IVPB Q24HR [facility] Last Admin: 12/26/17 09:07 Dose: 150 mls Potassium Chloride/Sodium Chloride (Ns 0.9% W/ 20 Meq Kcl) 1,000 ml in 1,000 mls @ 75 mls/hr IV .[id number] [facility] Last Admin: 12/26/17 09:16 Dose: 1,000 mls Vancomycin HCl 1.25 gm/ Sodium (Chloride) 250 mls @ 166.667 mls/hr IVPB 0100, 1300 [facility] Last Admin: 12/26/17 01:31 Dose: 250 mls Insulin Human Lispro (Humalog) 0 units SC .AGGRESSIVE SLIDING PRN PRN Reason: Aggressive Correctional Scale Last Admin: 12/25/17 16:38 Dose: 6 unit Insulin Human Lispro (Humalog) 0 units SC .BEDTIME SLIDING SC PRN PRN Reason: Bedtime Correctional Scale Labetalol HCl (Normodyne) 20 mg SLOW IVP Q4H PRN PRN Reason: Systolic BP > 180 Levothyroxine Sodium (Synthroid) 75 mcg PO 0600 [facility] Last Admin: 12/26/17 05:19 Dose: 75 mcg Loperamide HCl (Imodium) 2 mg PO PRN PRN PRN Reason: Diarrhea/Loose Stools Last Admin: 12/25/17 06:02 Dose: 2 mg Loratadine (Claritin) 10 mg PO DAILYPRN PRN PRN Reason: Sinus Symptoms Magnesium Hydroxide (Milk Of Magnesium) 30 ml PO DAILYPRN PRN PRN Reason: Constipation Metformin HCl (Glucophage) 1,000 mg PO BID [facility] Last Admin: 12/26/17 09:13 Dose: 1,000 mg Metoprolol Tartrate (Lopressor) 100 mg PO BID [facility] Last Admin: 12/26/17 10:06 Dose: 100 mg Mineral Oil/White Petrolatum (Eucerin Cream) 0 gm TOP BIDPRN PRN PRN Reason: Dry Skin Ondansetron HCl (Zofran Odt) 4 mg PO Q6H PRN PRN Reason: Nausea/Vomiting Ondansetron HCl (Zofran) 4 mg IVP Q6H PRN PRN Reason: Nausea/Vomiting Phenol (Chloraseptic [place] 180 Ml Bot) 0 ml PO PRN PRN PRN Reason: Sore Throat Last Admin: 12/24/17 14:37 Dose: 1 spray Pioglitazone HCl (Actos) 30 mg PO DAILY [facility] Last Admin: 12/26/17 10:07 Dose: 30 mg Saccharomyces Boulardii (Florastor) 250 mg PO DAILY [facility] Last Admin: 12/26/17 09:16 Dose: 250 mg Senna (Senokot) 2 tab PO HSPRN PRN PRN Reason: Constipation Simvastatin (Zocor) 5 mg PO [facility] Last Admin: 12/25/17 21:06 Dose: 5 mg Sodium Chloride (Flush - Normal Saline) 10 ml IVF PRN PRN PRN Reason: Saline Flush Sodium Chloride ([place] Nasal [place] 0.65%) 0 ml EA NARE QIDPRN PRN PRN Reason: Nasal Congestion Zolpidem Tartrate (Ambien) 5 mg PO HSPRN PRN PRN Reason: Insomnia
[2017-12-26] MEDS: HumaLOG 300 UNITS/3 ML VIAL SC PRN (13:41)
[2017-12-26] MEDS: Potassium Chloride 20 MEQ TAB PO SCH (16:09)
[2017-12-26] MEDS: Simvastatin 5 MG TAB PO SCH (21:03)
[2017-12-27 01:00] LABS: Vancomycin, Trough 19.5 ug/mL
[2017-12-27] MEDS: Vancomycin HCl 1.25 GM in Sodium Chloride 0.9% 250 ML 250 ML IVPB SCH ×2 (01:07→13:48)
[2017-12-27] MEDS: Levothyroxine Sodium 75 MCG TAB PO SCH (05:25)
[2017-12-27] MEDS: Piperacillin/Tazobactam 3.375 GM in Sodium Chloride 0.9% 100 ML IVPB SCH ×3 (05:29→16:32)
[2017-12-27 05:41] LABS: Anion Gap 12 mmol/L (10-20); BUN (Urea Nitrogen) 12 mg/dL (8.4-25.7); Calc. Creatinine Clearance 72 mL/min (70-130); Calcium 8.3 mg/dL (7.8-10.44); Carbon Dioxide 22 mmol/L (23-31); Chloride 112 mmol/L (98-107); Estimated GFR-MDRD 62; Glucose 149 mg/dL (83-110); Magnesium 1.5 mg/dL (1.6-2.6); Potassium 3.6 mmol/L (3.5-5.1); Sodium 142 mmol/L (136-145)
[2017-12-27 05:44] LABS: Phosphorus 1.6 mg/dL (2.3-4.7)
[2017-12-27] MEDS ORDERED: Potassium Phosphate 14 MMOL in Sodium Chloride 0.9% 250 ML 250 ML IVPB SCH (06:15)
[2017-12-27 06:53] LABS: Band 8 % (5-11); Eosinophils 6 % (0-10); Hemoglobin 13.7 g/dL (14.0-18.0); Lymphocytes 33 % (21-51); MDiff Complete? YES; Mean Corpuscular HGB CONC 35.9 g/dL (32.0-36.0); Mean Corpuscular Hemoglobin 31.7 pg (27.0-31.0); Mean Corpuscular Volume 88.2 fL (78.0-98.0); Mean Platelet Volume 7.3 fL (7.4-10.4); Monocytes 7 % (0-10); Neutrophil 43 % (42-75); Platelet Count 202 thou/uL (130-400); RBC Distribution Width 12.7 % (11.5-14.5); Reactive Lymphocytes 1 % (0-10); Red Blood Cell (RBC) Count 4.31 mill/uL (4.70-6.10); White Blood Cell (WBC) Count 5.5 thou/uL (4.8-10.8)
[2017-12-27] MEDS: Pioglitazone HCl 15 MG TAB PO SCH (08:22)
[2017-12-27] MEDS: Metoprolol Tartrate 100 MG TAB PO SCH ×2 (08:23→21:43)
[2017-12-27] MEDS: Lisinopril/Hydrochlorothiazide 20/25 mg Tablet PO SCH (08:24)
[2017-12-27] MEDS: Potassium Chloride 20 MEQ TAB PO SCH (08:24)
[2017-12-27] MEDS: metFORMIN 500 MG TAB PO SCH ×2 (08:25→20:52)
[2017-12-27] MEDS: hydrALAZINE 25 MG TAB PO SCH ×2 (08:25→20:54)
[2017-12-27] MEDS: glipiZIDE 10 MG TAB PO SCH ×2 (08:26→20:53)
[2017-12-27] MEDS: Saccharomyces boulardii 250 MG CAP PO SCH (08:26)
[2017-12-27] MEDS: Amlodipine 10 MG TAB PO SCH (08:26)
[2017-12-27] MEDS: Alogliptin 6.25 MG TAB PO SCH ×2 (08:26→20:50)
[2017-12-27] MEDS: Enoxaparin Sodium 40 MG/0.4 ML SYRINGE SC SCH (08:27)
[2017-12-27] MEDS: Famotidine 20 MG TAB PO SCH ×2 (08:27→20:53)
[2017-12-27] MEDS: cloNIDine 0.1 MG TAB PO SCH ×3 (08:27→20:51)
[2017-12-27] MEDS ORDERED: Magnesium Sulfate 4 GM in Sodium Chloride 0.9% 250 ML 250 ML IVPB SCH (09:00)
--- NOTE | 2017-12-27 10:27 | PDOC.PN ---
- Subjective Encounter Start Date: 12/27/17 Encounter Start Time: 09:30 Patient seen and examined. No new complaints. No overnight events - Objective Resuscitation Status: Resuscitation Status FULL:Full Resuscitation MAR Reviewed: Yes Vital Signs & Weight: Vital Signs (12 hours) Temp Pulse Resp BP BP Pulse Ox 12/27/17 08:27 149/99 H 12/27/17 08:26 84 149/99 H 12/27/17 08:25 84 149/99 H 12/27/17 08:24 84 149/99 H 12/27/17 08:00 98.3 F 84 20 149/99 H 95 12/27/17 04:00 98.0 F 81 18 165/83 H 97 Weight Weight 197 lb 9.6 oz I&O: 12/26/17 12/27/17 12/28/17 06:59 06:59 06:59 Intake Total 1185 950 Output Total 800 Balance 1185 150 Result Diagrams: 12/27/17 04:46 12/27/17 04:46 Additional Labs: Accuchecks 12/27/17 12/26/17 12/26/17 05:29 21:03 16:57 POC Glucose 157 H 148 H 105 12/26/17 11:48 POC Glucose 243 H Phys Exam - Physical Examination Constitutional: NAD HEENT: PERRLA, moist MMs, sclera anicteric Neck: no JVD, supple Respiratory: no wheezing, no rales, no rhonchi Cardiovascular: RRR, no significant murmur, no rub Gastrointestinal: soft, non-tender, no distention, positive bowel sounds Musculoskeletal: no edema, pulses present Neurological: non-focal, normal sensation, moves all 4 limbs Lymphatic: no nodes Psychiatric: normal affect, A&O x 3 Skin: no rash, normal turgor Dx/Plan (1) Acute colitis Code(s): K52.9 - NONINFECTIVE GASTROENTERITIS AND COLITIS, UNSPECIFIED Status : Acute Comment: likely due to infection, positive for campylobactor (2) Acute kidney failure Status: Resolved (3) Encephalopathy acute Code(s): G93.40 - ENCEPHALOPATHY, UNSPECIFIED Status: Resolved (4) Hyponatremia Code(s): E87.1 - HYPO-OSMOLALITY AND HYPONATREMIA Status: Resolved (5) Lactic acidosis Code(s): E87.2 - ACIDOSIS Status: Resolved (6) Obesity (BMI 30.0-34.9) Code(s): E66.9 - OBESITY, UNSPECIFIED Status: Acute (7) Sepsis with acute organ dysfunction Code(s): A41.9 - SEPSIS, UNSPECIFIED ORGANISM; R65.20 - SEVERE SEPSIS WITHOUT SEPTIC SHOCK Status: Acute (8) Diabetes type 2, controlled Code(s): E11.9 - TYPE 2 DIABETES MELLITUS WITHOUT COMPLICATIONS Status: Chronic (9) Hypertension Code(s): I10 - ESSENTIAL (PRIMARY) HYPERTENSION Status: Chronic (10) Hypokalemia Code(s): E87.6 - HYPOKALEMIA Status: Acute (11) Bacteremia due to Gram-negative bacteria Code(s): R78.81 - BACTEREMIA Status: Acute (12) Hypophosphatemia Code(s): E83.39 - OTHER DISORDERS OF PHOSPHORUS METABOLISM Status: Acute - Plan cont current plan of care, plan discussed w/ family, continue antibiotics * medication reviewed as below * symptomatic treatment * continue levaquin * await C & S result to decide oral antibiotics on discharge. * replace phosnac, potassium phosphate Review of Systems - Review of Systems Eyes: negative: Pain, Vision Change, Conjunctivae Inflammation, Eyelid Inflammation, Redness, Other ENT: negative: Ear Pain, Ear Discharge, Nose Pain, Nose Discharge, Nose Congestion, Mouth Pain, Mouth Swelling, Throat Pain, Throat Swelling, Other Respiratory: negative: Cough, Dry, Shortness of Breath, Hemoptysis, SOB with Excertion, Pleuritic Pain, Sputum, Wheezing Cardiovascular: negative: chest pain, palpitations, orthopnea, paroxysmal nocturnal dyspnea, edema, light headedness, other Gastrointestinal: negative: Nausea, Vomiting, Abdominal Pain, Diarrhea, Constipation, Melena, Hematochezia, Other Genitourinary: negative: Dysuria, Frequency, Incontinence, Hematuria, Retention , Other Musculoskeletal: negative: Neck Pain, Shoulder Pain, Arm Pain, Back Pain, Hand Pain, Leg Pain, Foot Pain, Other Skin: negative: Rash, Lesions, Ayush, Bruising, Other - Medications/Allergies Allergies/Adverse Reactions: Allergies Allergy/AdvReac Type Severity Reaction Status Date / Time No Known Drug Allergies Allergy Verified 12/24/17 00:07 Medications: Current Medications Acetaminophen (Tylenol) 650 mg PO Q6H PRN PRN Reason: Fever or Pain 1-3 Last Admin: 12/25/17 23:02 Dose: 650 mg Hydrocodone Bitart/Acetaminophen ([place] 5/325) 1 tab PO Q4H PRN PRN Reason: Moderate Pain (4-6) Al Hydroxide/Mg Hydroxide (Maalox) 30 ml PO Q6H PRN PRN Reason: Heartburn or Indigestion Alogliptin Benzoate (Alogliptin) 12.5 mg PO BID [facility] Last Admin: 12/27/17 08:26 Dose: 12.5 mg Amlodipine Besylate (Norvasc) 10 mg PO DAILY [facility] Last Admin: 12/27/17 08:26 Dose: 10 mg Artificial Tears (Tears Naturale) 0 drop EA EYE PRN PRN PRN Reason: Dry Eyes Clonidine (Catapres) 0.1 mg PO TID [facility] Last Admin: 12/27/17 08:27 Dose: 0.1 mg Dextrose/Water (Dextrose 50%) 25 gm SLOW IVP PRN PRN PRN Reason: Hypoglycemia Enoxaparin Sodium (Lovenox) 40 mg SC 0900 [facility] Last Admin: 12/27/17 08:27 Dose: 40 mg Famotidine (Pepcid) 20 mg PO BID [facility] Last Admin: 12/27/17 08:27 Dose: 20 mg Glipizide (Glucotrol) 10 mg PO BID [facility] Last Admin: 12/27/17 08:26 Dose: 10 mg Glucagon (Glucagon) 1 mg IM PRN PRN PRN Reason: Hypoglycemia Guaifenesin (Robitussin Sf) 200 mg PO Q4H PRN PRN Reason: Cough Lisinopril/HCTZ (Prinizide 20-25) 1 tab PO DAILY [facility] Last Admin: 12/27/17 08:24 Dose: 1 tab Hydralazine HCl (Apresoline) 50 mg PO BID [facility] Last Admin: 12/27/17 08:25 Dose: 50 mg Piperacillin Sod/Tazobactam (Sod 3.375 gm/ Sodium Chloride) 100 mls @ 200 mls/ hr IVPB 0500,1100,1700,2300 [facility] Last Admin: 12/27/17 05:29 Dose: 100 mls Dextrose/Water (D5w) 1,000 mls @ 0 mls/hr IV .Q0M PRN; As Directed PRN Reason: Hypoglycemia Levofloxacin 750 mg/ Device 150 mls @ 100 mls/hr IVPB Q24HR [facility] Last Admin: 12/26/17 09:07 Dose: 150 mls Vancomycin HCl 1.25 gm/ Sodium (Chloride) 250 mls @ 166.667 mls/hr IVPB 0100, 1300 [facility] Last Admin: 12/27/17 01:07 Dose: 250 mls Potassium Phosphate 14 mmol/ (Sodium Chloride) 254.6667 mls @ 63.667 mls/hr IVPB NOW [facility] Stop: 12/27/17 11:00 Last Admin: 12/27/17 06:47 Dose: 254.6667 mls Magnesium Sulfate 4 gm/ Sodium (Chloride) 258 mls @ 86 mls/hr IVPB NOW [facility] Stop: 12/27/17 11:59 Insulin Human Lispro (Humalog) 0 units SC .AGGRESSIVE SLIDING PRN PRN Reason: Aggressive Correctional Scale Last Admin: 12/26/17 13:41 Dose: 6 unit Insulin Human Lispro (Humalog) 0 units SC .BEDTIME SLIDING SC PRN PRN Reason: Bedtime Correctional Scale Labetalol HCl (Normodyne) 20 mg SLOW IVP Q4H PRN PRN Reason: Systolic BP > 180 Levothyroxine Sodium (Synthroid) 75 mcg PO 0600 [facility] Last Admin: 12/27/17 05:25 Dose: 75 mcg Loperamide HCl (Imodium) 2 mg PO PRN PRN PRN Reason: Diarrhea/Loose Stools Last Admin: 12/25/17 06:02 Dose: 2 mg Loratadine (Claritin) 10 mg PO DAILYPRN PRN PRN Reason: Sinus Symptoms Magnesium Hydroxide (Milk Of Magnesium) 30 ml PO DAILYPRN PRN PRN Reason: Constipation Metformin HCl (Glucophage) 1,000 mg PO BID [facility] Last Admin: 12/27/17 08:25 Dose: 1,000 mg Metoprolol Tartrate (Lopressor) 100 mg PO BID [facility] Last Admin: 12/27/17 08:23 Dose: 100 mg Mineral Oil/White Petrolatum (Eucerin Cream) 0 gm TOP BIDPRN PRN PRN Reason: Dry Skin Miscellaneous Medication (Phos-Nak) 1 pkt PO NOW [facility] Stop: 12/27/17 10:30 Ondansetron HCl (Zofran Odt) 4 mg PO Q6H PRN PRN Reason: Nausea/Vomiting Ondansetron HCl (Zofran) 4 mg IVP Q6H PRN PRN Reason: Nausea/Vomiting Phenol (Chloraseptic [place] 180 Ml Bot) 0 ml PO PRN PRN PRN Reason: Sore Throat Last Admin: 12/24/17 14:37 Dose: 1 spray Pioglitazone HCl (Actos) 30 mg PO DAILY [facility] Last Admin: 12/27/17 08:22 Dose: 30 mg Saccharomyces Boulardii (Florastor) 250 mg PO DAILY [facility] Last Admin: 12/27/17 08:26 Dose: 250 mg Senna (Senokot) 2 tab PO HSPRN PRN PRN Reason: Constipation Simvastatin (Zocor) 5 mg PO [facility] Last Admin: 12/26/17 21:03 Dose: 5 mg Sodium Chloride (Flush - Normal Saline) 10 ml IVF PRN PRN PRN Reason: Saline Flush Last Admin: 12/27/17 08:27 Dose: 10 ml Sodium Chloride ([place] Nasal [place] 0.65%) 0 ml EA NARE QIDPRN PRN PRN Reason: Nasal Congestion Zolpidem Tartrate (Ambien) 5 mg PO HSPRN PRN PRN Reason: Insomnia
[2017-12-27] MEDS: HumaLOG 300 UNITS/3 ML VIAL SC PRN (11:20)
[2017-12-27] MEDS: Simvastatin 5 MG TAB PO SCH (20:51)
[2017-12-28] MEDS: Piperacillin/Tazobactam 3.375 GM in Sodium Chloride 0.9% 100 ML IVPB SCH ×4 (00:19→12:06)
[2017-12-28 00:46] LABS: Vancomycin, Trough 20.6 ug/mL
[2017-12-28] MEDS: Vancomycin HCl 1.25 GM in Sodium Chloride 0.9% 250 ML 250 ML IVPB SCH (01:45)
[2017-12-28] MEDS ORDERED: Vancomycin HCl 1 GM in Premix Bag 1 BAG IVPB SCH (02:00)
[2017-12-28] MEDS: Levothyroxine Sodium 75 MCG TAB PO SCH (05:49)
[2017-12-28] MEDS: Metoprolol Tartrate 100 MG TAB PO SCH (08:59)
[2017-12-28] MEDS: Pioglitazone HCl 15 MG TAB PO SCH (08:59)
[2017-12-28] MEDS: Saccharomyces boulardii 250 MG CAP PO SCH (08:59)
[2017-12-28] MEDS: Enoxaparin Sodium 40 MG/0.4 ML SYRINGE SC SCH (08:59)
[2017-12-28] MEDS: hydrALAZINE 25 MG TAB PO SCH (09:00)
[2017-12-28] MEDS: Amlodipine 10 MG TAB PO SCH (09:00)
[2017-12-28] MEDS: metFORMIN 500 MG TAB PO SCH (09:00)
[2017-12-28] MEDS: Alogliptin 6.25 MG TAB PO SCH (09:00)
[2017-12-28] MEDS: glipiZIDE 10 MG TAB PO SCH (09:00)
[2017-12-28] MEDS: cloNIDine 0.1 MG TAB PO SCH (09:01)
[2017-12-28] MEDS: Famotidine 20 MG TAB PO SCH (09:01)
[2017-12-28] MEDS: Lisinopril/Hydrochlorothiazide 20/25 mg Tablet PO SCH (09:01)
--- NOTE | 2017-12-28 11:44 | PDOC.PN ---
- Subjective Encounter Start Date: 12/28/17 Encounter Start Time: 09:50 Patient seen and examined. No new complaints. No overnight events - Objective Resuscitation Status: Resuscitation Status FULL:Full Resuscitation MAR Reviewed: Yes Vital Signs & Weight: Vital Signs (12 hours) Temp Pulse Resp BP BP Pulse Ox 12/28/17 09:01 63 163/78 H 12/28/17 09:00 63 163/78 H 12/28/17 08:00 98.3 F 63 16 163/78 H 94 L 12/28/17 04:00 98.9 F 64 166/86 H 96 12/28/17 00:00 98.3 F 69 20 143/77 H 94 L Weight Weight 197 lb 9.6 oz I&O: 12/27/17 12/28/17 12/29/17 06:59 06:59 06:59 Intake Total 950 1100 Output Total 800 500 Balance 150 600 Result Diagrams: 12/27/17 04:46 12/27/17 04:46 Additional Labs: Accuchecks 12/28/17 12/27/17 12/27/17 05:58 20:51 16:44 POC Glucose 185 H 182 H 133 H Phys Exam - Physical Examination Constitutional: NAD HEENT: PERRLA, moist MMs, sclera anicteric Neck: no JVD, supple Respiratory: no wheezing, no rales, no rhonchi Cardiovascular: RRR, no significant murmur, no rub Gastrointestinal: soft, non-tender, no distention, positive bowel sounds Musculoskeletal: no edema, pulses present Neurological: non-focal, normal sensation, moves all 4 limbs Lymphatic: no nodes Psychiatric: normal affect, A&O x 3 Skin: no rash, normal turgor Dx/Plan (1) Acute colitis Code(s): K52.9 - NONINFECTIVE GASTROENTERITIS AND COLITIS, UNSPECIFIED Status : Acute Comment: likely due to infection, positive for campylobactor (2) Acute kidney failure Status: Resolved (3) Encephalopathy acute Code(s): G93.40 - ENCEPHALOPATHY, UNSPECIFIED Status: Resolved (4) Hyponatremia Code(s): E87.1 - HYPO-OSMOLALITY AND HYPONATREMIA Status: Resolved (5) Lactic acidosis Code(s): E87.2 - ACIDOSIS Status: Resolved (6) Obesity (BMI 30.0-34.9) Code(s): E66.9 - OBESITY, UNSPECIFIED Status: Acute (7) Sepsis with acute organ dysfunction Code(s): A41.9 - SEPSIS, UNSPECIFIED ORGANISM; R65.20 - SEVERE SEPSIS WITHOUT SEPTIC SHOCK Status: Acute (8) Diabetes type 2, controlled Code(s): E11.9 - TYPE 2 DIABETES MELLITUS WITHOUT COMPLICATIONS Status: Chronic (9) Hypertension Code(s): I10 - ESSENTIAL (PRIMARY) HYPERTENSION Status: Chronic (10) Hypokalemia Code(s): E87.6 - HYPOKALEMIA Status: Acute (11) Bacteremia due to Gram-negative bacteria Code(s): R78.81 - BACTEREMIA Status: Acute - Plan cont current plan of care, plan discussed w/ family, continue antibiotics * medication reviewed as below * symptomatic treatment * continue zosyn and levaquin * vancomycin discontinued * possible discharge once we get result of C & S. Review of Systems - Review of Systems Eyes: negative: Pain, Vision Change, Conjunctivae Inflammation, Eyelid Inflammation, Redness, Other ENT: negative: Ear Pain, Ear Discharge, Nose Pain, Nose Discharge, Nose Congestion, Mouth Pain, Mouth Swelling, Throat Pain, Throat Swelling, Other Respiratory: negative: Cough, Dry, Shortness of Breath, Hemoptysis, SOB with Excertion, Pleuritic Pain, Sputum, Wheezing Cardiovascular: negative: chest pain, palpitations, orthopnea, paroxysmal nocturnal dyspnea, edema, light headedness, other Gastrointestinal: negative: Nausea, Vomiting, Abdominal Pain, Diarrhea, Constipation, Melena, Hematochezia, Other Genitourinary: negative: Dysuria, Frequency, Incontinence, Hematuria, Retention , Other Musculoskeletal: negative: Neck Pain, Shoulder Pain, Arm Pain, Back Pain, Hand Pain, Leg Pain, Foot Pain, Other Skin: negative: Rash, Lesions, Ayush, Bruising, Other - Medications/Allergies Allergies/Adverse Reactions: Allergies Allergy/AdvReac Type Severity Reaction Status Date / Time No Known Drug Allergies Allergy Verified 12/24/17 00:07 Medications: Current Medications Acetaminophen (Tylenol) 650 mg PO Q6H PRN PRN Reason: Fever or Pain 1-3 Last Admin: 12/25/17 23:02 Dose: 650 mg Hydrocodone Bitart/Acetaminophen ([place] 5/325) 1 tab PO Q4H PRN PRN Reason: Moderate Pain (4-6) Al Hydroxide/Mg Hydroxide (Maalox) 30 ml PO Q6H PRN PRN Reason: Heartburn or Indigestion Alogliptin Benzoate (Alogliptin) 12.5 mg PO BID [facility] Last Admin: 12/28/17 09:00 Dose: 12.5 mg Amlodipine Besylate (Norvasc) 10 mg PO DAILY [facility] Last Admin: 12/28/17 09:00 Dose: 10 mg Artificial Tears (Tears Naturale) 0 drop EA EYE PRN PRN PRN Reason: Dry Eyes Clonidine (Catapres) 0.1 mg PO TID [facility] Last Admin: 12/28/17 09:01 Dose: 0.1 mg Dextrose/Water (Dextrose 50%) 25 gm SLOW IVP PRN PRN PRN Reason: Hypoglycemia Enoxaparin Sodium (Lovenox) 40 mg SC 0900 [facility] Last Admin: 12/28/17 08:59 Dose: 40 mg Famotidine (Pepcid) 20 mg PO BID [facility] Last Admin: 12/28/17 09:01 Dose: 20 mg Glipizide (Glucotrol) 10 mg PO BID [facility] Last Admin: 12/28/17 09:00 Dose: 10 mg Glucagon (Glucagon) 1 mg IM PRN PRN PRN Reason: Hypoglycemia Guaifenesin (Robitussin Sf) 200 mg PO Q4H PRN PRN Reason: Cough Lisinopril/HCTZ (Prinizide 20-25) 1 tab PO DAILY [facility] Last Admin: 12/28/17 09:01 Dose: 1 tab Hydralazine HCl (Apresoline) 50 mg PO BID [facility] Last Admin: 12/28/17 09:00 Dose: 50 mg Piperacillin Sod/Tazobactam (Sod 3.375 gm/ Sodium Chloride) 100 mls @ 200 mls/ hr IVPB 0500,1100,1700,2300 [facility] Last Admin: 12/28/17 05:48 Dose: 100 mls Dextrose/Water (D5w) 1,000 mls @ 0 mls/hr IV .Q0M PRN; As Directed PRN Reason: Hypoglycemia Levofloxacin 750 mg/ Device 150 mls @ 100 mls/hr IVPB Q24HR [facility] Last Admin: 12/28/17 08:59 Dose: 150 mls Insulin Human Lispro (Humalog) 0 units SC .AGGRESSIVE SLIDING PRN PRN Reason: Aggressive Correctional Scale Last Admin: 12/27/17 11:20 Dose: 6 unit Insulin Human Lispro (Humalog) 0 units SC .BEDTIME SLIDING SC PRN PRN Reason: Bedtime Correctional Scale Labetalol HCl (Normodyne) 20 mg SLOW IVP Q4H PRN PRN Reason: Systolic BP > 180 Levothyroxine Sodium (Synthroid) 75 mcg PO 0600 [facility] Last Admin: 12/28/17 05:49 Dose: 75 mcg Loperamide HCl (Imodium) 2 mg PO PRN PRN PRN Reason: Diarrhea/Loose Stools Last Admin: 12/25/17 06:02 Dose: 2 mg Loratadine (Claritin) 10 mg PO DAILYPRN PRN PRN Reason: Sinus Symptoms Magnesium Hydroxide (Milk Of Magnesium) 30 ml PO DAILYPRN PRN PRN Reason: Constipation Metformin HCl (Glucophage) 1,000 mg PO BID [facility] Last Admin: 12/28/17 09:00 Dose: 1,000 mg Metoprolol Tartrate (Lopressor) 100 mg PO BID [facility] Last Admin: 12/28/17 08:59 Dose: 100 mg Mineral Oil/White Petrolatum (Eucerin Cream) 0 gm TOP BIDPRN PRN PRN Reason: Dry Skin Ondansetron HCl (Zofran Odt) 4 mg PO Q6H PRN PRN Reason: Nausea/Vomiting Ondansetron HCl (Zofran) 4 mg IVP Q6H PRN PRN Reason: Nausea/Vomiting Phenol (Chloraseptic [place] 180 Ml Bot) 0 ml PO PRN PRN PRN Reason: Sore Throat Last Admin: 12/24/17 14:37 Dose: 1 spray Pioglitazone HCl (Actos) 30 mg PO DAILY [facility] Last Admin: 12/28/17 08:59 Dose: 30 mg Saccharomyces Boulardii (Florastor) 250 mg PO DAILY [facility] Last Admin: 12/28/17 08:59 Dose: 250 mg Senna (Senokot) 2 tab PO HSPRN PRN PRN Reason: Constipation Simvastatin (Zocor) 5 mg PO HS [facility] Last Admin: 12/27/17 20:51 Dose: 5 mg Sodium Chloride (Flush - Normal Saline) 10 ml IVF PRN PRN PRN Reason: Saline Flush Last Admin: 12/28/17 08:59 Dose: 10 ml Sodium Chloride ([place] Nasal [place] 0.65%) 0 ml EA NARE QIDPRN PRN PRN Reason: Nasal Congestion Zolpidem Tartrate (Ambien) 5 mg PO HSPRN PRN PRN Reason: Insomnia
[2017-12-28 11:46] VITALS: BP 126/75; TEMP 98.2
--- NOTE | 2017-12-28 12:30 | DIS ---
DATE OF ADMISSION: 12/23/2017 DATE OF DISCHARGE: 12/28/2017 PRIMARY CARE PHYSICIAN: Dr. Suzanne Moe M.D. DISCHARGE DISPOSITION: Home. PRIMARY DISCHARGE DIAGNOSES: 1. Sepsis with acute organ dysfunction. 2. Lactic acidosis, improved. 3. Hyponatremia, corrected. 4. Acute encephalopathy, improved. 5. Acute kidney failure, improved. 6. Acute colitis due to Campylobacter. 7. Bacteremia due to Campylobacter. 8. Hypokalemia. 9. Hypophosphatemia. SECONDARY DISCHARGE DIAGNOSES: Obesity with BMI 33; diabetes, type 2; hypertension; hypothyroidism; dyslipidemia. PRIMARY PROCEDURE/OPERATION: None. RADIOLOGICAL INVESTIGATIONS: CT brain negative for any acute intracranial process. Chest x-ray norm al. CT of the abdomen and pelvis showed colitis. There was suspected finding of appendicitis, but t he surgeon recommended not to do any further at this point. SIGNIFICANT LABORATORY DATA: WBC 5.5, hemoglobin 13.7, platelets 202. Sodium 142, potassium 3.6, BU N 22, creatinine 1.16, calcium 8.3. Urinalysis normal. Blood culture was positive for gram-negative chucky that was reported as Campylobacter. Urine culture negative. Stool for infection workup positiv e for Campylobacter. Repeat blood culture negative. DISCHARGE MEDICATIONS: Amlodipine 10 mg p.o. daily, clonidine 0.1 mg p.o. t.i.d., glipizide 10 mg p. o. b.i.d., hydralazine 50 mg p.o. b.i.d., Synthroid 75 mcg p.o. daily, Prinzide 20/25 one tablet p.o. daily, lovastatin 10 mg p.o. at bedtime, metoprolol 100 mg twice daily, Actos 30 mg p.o. daily, Fco met one tablet p.o. b.i.d., levofloxacin 750 mg p.o. daily for 10 more days, Florastor 250 mg p.o. da mayur for 10 more days. CONTRAINDICATIONS: None. CODE STATUS: FULL CODE. INPATIENT CONSULTANTS: Dr. Dale was consulted for suspected finding of appendix inflammation, but b ased on his assessment, the patient does not need any surgical treatment and he signed off. TEST RESULTS PENDING ON DISCHARGE: None. ALLERGIES: No known drug allergy. DISCHARGE PLAN: Post hospital, the patient is instructed to follow up with primary care physician. The patient is also instructed to get outpatient GI followup for evaluation with colonoscopy if elianae d. HOSPITAL COURSE: This is a 72-year-old male, who was admitted by me on 12/23/2017. Please see my HP I for further details. The patient was admitted for nausea, vomiting, abdominal pain, diarrhea. He had acute kidney failure. He was confused before coming to the hospital and he was meeting sepsis cr iteria. He was admitted to initially telemetry floor where he was treated with IV fluid, broad-spect rum antibiotic therapy with vancomycin, Zosyn, and Levaquin. We did CT of the abdomen and pelvis caterina t confirmed acute colitis, and there was suspicious finding of appendix inflammation and that is why we consulted Dr. Stephon Dale. He looked at CT scan and he was not worried about any surgical proce dure on him. The patient also had significant clinical improvement with antibiotic therapy. He johnson ined afebrile. His low blood pressure improved, lactic acidosis resolved. He had abnormal electroly salvador that was also corrected while in hospital. His blood culture was positive for Campylobacter and his stool for infection workup also positive for Campylobacter. His urine culture remained negative. Upon stabilization, we resume patient's home medication while in hospital. He was ambulatory, tole rating p.o. well. He already had recently colonoscopy and that is why we did not pursue a GI consult ation while in hospital, but he can follow up with GI after discharge. Overall, patient is medically stable for discharge. He responded very well to levofloxacin therapy w lea in hospital. The patient is seen and examined at bedside today. Please see my progress note fr om today for further detail. Total time spent on discharge day, 31 minutes.
[2017-12-28] MEDS: HumaLOG 300 UNITS/3 ML VIAL SC PRN (13:20)
== END 2017-12-28 13:48 | disposition home or self-care (01) | DRG 871 ==
LOC: SCSER 21:28 → 2NO 23:00 → T4-B 12-25 14:50
PROVIDERS: ADMIT Hospitalist; ATTEND Hospitalist
DX: A41.59 Other Gram-negative sepsis (principal); G93.41 Metabolic encephalopathy; A04.5 Campylobacter enteritis; N17.9 Acute kidney failure, unspecified; E87.2 Acidosis; E87.1 Hypo-osmolality and hyponatremia; R65.20 Severe sepsis without septic shock; E11.65 Type 2 diabetes mellitus with hyperglycemia; E83.39 Other disorders of phosphorus metabolism; E87.6 Hypokalemia; E86.0 Dehydration; I10 Essential (primary) hypertension; E66.9 Obesity, unspecified; Z68.33 Body mass index [BMI] 33.0-33.9, adult; Z79.84 Long term (current) use of oral hypoglycemic drugs
CPT/HCPCS: 36415; 36416; 70450; 71045; 74177; 80048; 80053; 80202; 81003; 81015; 82553; 83605; 83690; 83735; 84100; 84443; 84484; 85025; 87040; 87045; 87046; 87086; 87149; 87324; 87328; 87329; 87449; 87899; 90471; 90670; 93005; 96365; 96367; G0009; J1650; J1956; J2543; J3370; J3475; J7050